=== PATIENT | female | born 1990 | race Caucasian/White ===

== ENCOUNTER 2020-02-15 07:08 | Emergency (ER) | payer MEDICAID, SELFPAY ==
[2020-02-15 07:19] VITALS: BP 127/65; PULSE 92; RESP 18; TEMP 36.9; O2SAT 100; BMI 33.8
[2020-02-15 07:52] LABS: Glucose Urine UA NEG (NEG); Leukocyte Esterase Urine NEG (NEG); Nitrite Urine NEG (NEG); Specific Gravity - Urine 1.015 (1.005-1.025); Urine Blood TRACE (NEG); Urine Ketones NEG (NEG); Urine Protein NEG (NEG-TRACE)
[2020-02-15 07:56] LABS: Appearance Urine CLEAR; Color Urine YELLOW
[2020-02-15 08:00] LABS: RBC Urine 0-2 /HPF (0); Squamous Epithelial Cell Urine 1+ /LPF; WBC Urine 0 /HPF (0-4)
--- NOTE | 2020-02-15 08:04 | CT_ITS ---
EXAMINATION: CT ABDOMEN AND PELVIS WITH CONTRAST CLINICAL INFORMATION: Lower abdominal, right flank, RLQ pain rule out appendicitis, div. COMPARISON: None TECHNIQUE: Multidetector volumetric images were obtained from the superior aspect of the liver through the pubic symphysis following administration 85 mL of Omnipaque 350 intravenous contrast. Sagittal and coronal reformatted images were obtained on the technologist's workstation. Oral contrast: No This CT examination was performed using dose optimization techniques as appropriate, variously including the following: Automated exposure control. Adjustment of mA and/or kV according to patient size (this includes techniques or standardized protocols for targeted exams where dose is matched to indication/reason for exam; i.e. extremities or head). Use of iterative reconstruction technique. DLP: 815 mGy-cm FINDINGS: LUNG BASES: The visualized lung bases are unremarkable. LIVER, GALLBLADDER, AND BILIARY TREE: The liver is normal in size, shape, and attenuation. No focal hepatic lesion or biliary ductal dilatation is present. The gallbladder is unremarkable with no evidence of radiopaque gallstones, gallbladder wall thickening, or obvious pericholecystic inflammatory changes. PANCREAS: Unremarkable. SPLEEN: Unremarkable. ADRENAL GLANDS: Unremarkable. KIDNEYS AND URETERS: The kidneys are normal in size, shape, and attenuation. No hydronephrosis, hydroureter, or calculi seen. No perinephric stranding. BLADDER: Unremarkable. GASTROINTESTINAL TRACT: The small and large bowel are unremarkable. The appendix is unremarkable. ABDOMINAL WALL: No significant hernia is appreciated. LYMPH NODES: No retroperitoneal lymphadenopathy. VASCULAR: Unremarkable. PELVIC VISCERA: An anteverted uterus is present containing an IUD in good position. Bilateral ovarian cysts are seen. OSSEOUS STRUCTURES: Mild degenerative changes present in the lumbosacral spine. CT/CT abdomen pelvis w con IMPRESSION: An etiology for the patient's lower abdominal/right flank and right lower quadrant pain has not been found. No nephrolithiasis is seen and the appendix appears normal.
--- NOTE | 2020-02-15 08:09 | ED.ABDPAIN ---
HPI - Abdominal Pain General Chief Complaint: Abdominal Pain Stated Complaint: abdominal pain Time Seen by Provider: 02/15/20 07:53 Source: patient Mode of arrival: ambulatory Limitations: no limitations History of Present Illness HPI narrative: 29-year-old female who presents to the emergency department for evaluation of abdominal pain. Patient states that she has had a lower abdominal pain for approximately 8 days. She describes the pain is a intermittent cramping/stabbing sensation. She states she has had similar pain on and off in the past and has not been evaluated for it. She thought the pain would just resolve but it persisted. She states that this morning at 5:00 a.m. after she urinated the pain became severe and was greater than 10/10. The pain was more of a sharp stabbing pain located in her right flank, right lower quadrant and suprapubic area. Since the onset of the pain it is improved without treatment 8/10. She states she does have urinary urgency and frequency but no dysuria. She denied fever, chills, nausea, vomiting, and diarrhea. She denied chest pain or shortness of breath. She states that she has had a kidney stone in the past but this pain feels different than her kidney stone pain. She also states she had an ovarian cyst in the past and this feels different than her ovarian cyst pain. The patient is a and she has an IUD for 3 years and gets spotting only with unknown last menstrual period. Related Data Previous Rx's Medication Instructions Recorded ondansetron 4 mg PO Q8H PRN #14 tab 02/15/20 Allergies Allergy/AdvReac Type Severity Reaction Status Date / Time No Known Allergies Allergy Unverified 11/07/19 17:35 Review of Systems Review of Systems Yes all other systems are reviewed and are negative Constitutional: Reports as per HPI Eyes: Reports as per HPI Reports as per HPI Cardiovascular: Reports as per HPI Respiratory: Reports as per HPI Gastrointestinal: Reports as per HPI Genitourinary: Reports as per HPI Musculoskeletal: Reports as per HPI Skin/Breast: Reports as per HPI Reports as per HPI and Reports Abnormal speech present Psychiatric: Reports as per HPI Allergic/Immunologic: Reports as per HPI Physical Exam Vital Signs: Vital Signs: Last Vital Signs Temp 98.5 F 02/15/20 07:19 Pulse 92 02/15/20 07:19 Resp 18 02/15/20 07:19 BP 127/65 02/15/20 07:19 Pulse Ox 100 02/15/20 07:19 Body Mass Index 33.8 Const: General: cooperative and healthy appearing Nutritional Appearance: obese Orientation/consciousness: oriented to person and oriented to place Limitations: no limitations HENMT: Head: Yes normal to inspection, Yes normocephalic and Yes atraumatic Ears: external ears normal General nose exam: Normal external nose present Face and sinus: Yes normal facial exam Mouth: Normal oral and palatal mucosa present Throat: Yes posterior oropharynx normal Eyes: General: appearance normal, both eyes and all related structures Alignment and Position: alignment normal Periorbital: periorbital findings normal Eyelids: Yes eyelids normal Conjunctivae: conjunctivae normal Sclerae: sclerae normal Pupils: Equal, round and reactive pupils present Direct Ophthalmoscopy: normal light reflex Neck: Neck: Yes normal visual inspection and Yes supple Thyroid: Thyroid normal Chest: Chest palpation & inspection: normal inspection of the chest and normal palpation of entire chest wall Resp: Effort & Inspection: normal respiratory effort and able to speak in complete sentences Auscultation: clear to auscultation bilaterally, no crackles, no rales and no rhonchi Cardio: Rate: regular rate Rhythm: regular rhythm Heart sounds: S1 normal heart sound present, S2 normal heart sound present and no murmurs GI: Inspection: Yes normal to inspection Palpation (GI): Soft to palpation, Tenderness to palpation present (GI) in the LLQ (Mild), in the RLQ (Moderate) and suprapubicly (Severe) and no guarding Auscultation: normal bowel sounds : General: Yes CVA tenderness (Moderate right-sided CVAT) Back/Spine/Pelvis: Back: CVA tenderness (Moderate right-sided CVAT) Cervical Spine: normal cervical lordosis Thoracic/Lumbar Spine: thoracic and lumbar spine normal to inspection Skin: General skin exam: no rashes or lesions noted Lesions: no lesions Rashes: no rashes Trauma: no lacerations or abrasions Neuro: General: oriented to person and oriented to place Cranial nerves: Yes CN's II-XII intact bilaterally and Yes Equal, round and reactive pupils present Cognition (Neuro): normal cognition Speech: Abnormal speech present Motor exam (neuro): 5/5 motor strength present throughout Extrem: Right upper extremity: normal to inspection and full ROM Psych: Appearance: grossly normal and well kempt Mental Status: mental status grossly normal Speech and movement: Normal speech and movement present Affect: normal affect Attitude: cooperative Thought process: Normal thought process present Thought content: Normal thought content present Insight: Good insight present (Psych) Judgement: Good judgement present (Psych) Course Course Course Narrative: 29-year-old female with intermittent abdominal pain times 8 days with severe lower abdominal pain since 5:00 a.m., physical examination did reveal moderate right lower quadrant, severe suprapubic and mild left lower quadrant tenderness. She also had moderate right CVA tenderness. The differential does include but is not limited to kidney stone, ectopic , ovarian cyst, appendicitis, diverticulitis. I did order an abdominal pain workup on this patient to include urinalysis and urine test, CT scan of the abdomen pelvis with IV contrast. She was ordered to get Toradol 30 mg IV, Zofran 4 mg IV normal saline IV x1 L. 1038: The patient's pain did improve with the IV Toradol. She continued to have nausea and required a 2nd dose of Zofran 4 mg IV with improvement of her symptoms. She states that her pain is significantly better. Her laboratory evaluation was unremarkable except for an elevated lipase of 217. CT scan of the patient's abdomen pelvis did not reveal any acute abnormalities, the pancreas appeared normal waiting to the radiologist. It is possible the patient may have mild pancreatitis as the cause for pain and I did discuss this with her. The patient does not have evidence for kidney stone or urinalysis. The patient will be discharged home with printed instructions and pancreatitis. She was advised to take Tylenol and ibuprofen for pain. She was also given prescription for Zofran for nausea. She was advised to return emergency department if her symptoms get worse or feels any symptoms of concerning to her. MDM - Abdominal Pain Lab Data Result diagrams: 02/15/20 08:28 02/15/20 08:28 Labs: Lab Results 02/15/20 02/15/20 02/15/20 Range/Units 07:45 08:28 08:28 WBC 8.2 (4.8-10.8) X10*3/uL RBC 4.91 (4.20-5.50) X10*6/uL Hgb 13.2 (12.0-16.0) g/dl Hct 42.6 (37-47) % MCV 86.8 (80-98) fL MCH 26.9 L (27.0-33.0) pg MCHC 31.0 (31.0-35.0) g/dl RDW 13.6 (11.0-16.0) % Plt Count 222 (160-400) X10*3/uL MPV 10.4 (9.4-12.3) fL Immature Gran % (Auto) 0.2 (0.0-0.4) % Neut % (Auto) 74.5 H (45-73) % Lymph % (Auto) 16.3 L (20-40) % [place] % (Auto) 6.5 (2-11) % Eos % (Auto) 1.8 (0-4) % Baso % (Auto) 0.7 (0-2) % Lymph # (Auto) 1.3 (1.2-4.9) X10*3/uL [place] # (Auto) 0.5 (0.1-1.2) X10*3/uL Eos # (Auto) 0.2 (0.0-0.4) X10*3/uL Baso # (Auto) 0.1 (0.0-0.2) X10*3/uL Abs Immat Gran (auto) 0.02 (0.00-0.03) X10*3/uL Absolute Neuts (auto) 6.1 (2.0-8.3) X10*3/uL Absolute Nucleated RBC 0.000 (0.0-0.012) X10*3/uL Nucleated RBC % (auto) 0.0 (0.0-0.2) /100WBC Sodium 139 (135-145) mmol/L Potassium 4.4 (3.3-5.1) mmol/l Chloride 106 (96-108) mmol/L Carbon Dioxide 24 (22-29) mmol/L Anion Gap 13 (12-20) BUN 15 (9-16) mg/dL Creatinine 0.70 (0.5-1.4) mg/dL Estim Creat Clear Calc 120.2 Estimated GFR > 60 Random Glucose 80 (60-115) mg/dL Calcium 8.7 (8.4-10.2) mg/dL Total Bilirubin 0.8 (0.0-1.0) mg/dL AST 19 (5-31) U/L ALT 15 (0-31) U/L Alkaline Phosphatase 65 (39-117) U/L Total Protein 7.0 (6.5-8.0) g/dL Albumin 4.2 (3.5-5.0) g/dL Lipase 217 H (8-78) U/L Urine Color YELLOW Urine Appearance CLEAR Urine pH 6.0 (5.0-8.0) Ur Specific [place] 1.015 (1.005-1.025) Urine Protein NEG (NEG-TRACE) MG/DL Urine Glucose (UA) NEG (NEG) MG/DL Urine Ketones NEG (NEG) MG/DL Urine Blood TRACE (NEG) Urine Nitrite NEG (NEG) Ur Leukocyte Esterase NEG (NEG) Urine RBC 0-2 (0) /HPF Urine WBC 0 (0-4) /HPF Ur Squamous Epith Cells 1+ /LPF Urine Bacteria NONE /LPF Urine Test NEGATIVE (NEGATIVE) Discharge Plan Discharge Clinical Impression: Nausea Abdominal pain Qualifiers: Abdominal location: lower abdomen, unspecified Qualified Code(s): R10.30 - Lower abdominal pain, unspecified Patient Disposition: Home, Self-Care Instructions: Pancreatitis (ED) Additional Instructions: Your blood work revealed an elevated lipase of 217. Normal is 78. You may have mild pancreatitis because of your abdominal pain today. This often gets better without any treatment. Take ibuprofen 200 mg pills, 3 pills every 6 hours as needed for pain. Take Tylenol 500 mg pills, 2 pills every 6 hours as needed for pain. Take Zofran ODT 4 mg, 1 pill dissolved in mouth every 8 hours as needed for nausea or vomiting. Follow-up with your doctor in 2 days for re-evaluation. Please return to the emergency department if her symptoms get worse or if you develop any symptoms are concerning to you. Prescriptions: New ondansetron 4 mg tablet,disintegrating 4 mg PO Q8H PRN (Reason: nausea and vomiting) Qty: 14 RF: 0 [facility] Past Medical History Attestation statement: The following information was validated with the patient. [facility] Narrative: History of kidney stones, UTI, ovarian cyst, , ovarian cyst surgery 6 years prior, smokes 1/3 pack of cigarettes per day intermittently times 10 years, drinks alcohol occasionally, last drink yesterday, denies drug use. Social History Social History Advance Directives: No Advance Directives Information Provided: No
[2020-02-15 08:34] LABS: Basophils Absolute Auto 0.1 X10*3/uL (0.0-0.2); Basophils Percent Auto 0.7 % (0-2); Eosinophils Absolute Auto 0.2 X10*3/uL (0.0-0.4); Eosinophils Percent Auto 1.8 % (0-4); Hematocrit 42.6 % (37-47); Hemoglobin 13.2 g/dl (12.0-16.0); Imm Gran Abs Auto 0.02 X10*3/uL (0.00-0.03); Imm Gran Pct Auto 0.2 % (0.0-0.4); Lymphocytes Absolute Auto 1.3 X10*3/uL (1.2-4.9); Lymphocytes Percent Auto 16.3 % (20-40); Mean Corpuscular Hemoglobin 26.9 pg (27.0-33.0); Mean Corpuscular Volume 86.8 fL (80-98); Mean Platelet Volume 10.4 fL (9.4-12.3); Monocytes Absolute Auto 0.5 X10*3/uL (0.1-1.2); Monocytes Percent Auto 6.5 % (2-11); Neutrophils Absolute Auto 6.1 X10*3/uL (2.0-8.3); Neutrophils Percent Auto 74.5 % (45-73); Platelet Count 222 X10*3/uL (160-400); Red Blood Count 4.91 X10*6/uL (4.20-5.50); Red Cell Distribution Width 13.6 % (11.0-16.0); White Blood Count 8.2 X10*3/uL (4.8-10.8)
[2020-02-15] MEDS: Ketorolac Tromethamine 15 MG/ML VIAL 30 MG IV (08:35)
[2020-02-15] MEDS: ondansetron HCL 4 MG/2 ML VIAL IVPUSH ×2 (08:35→10:20)
[2020-02-15] MEDS: 0.9 % Sodium Chloride 1,000 ML 999 ML IV (08:35)
[2020-02-15 08:36] LABS: MANUAL DIFF FLAG NO
[2020-02-15 08:58] LABS: Alanine Aminotransferase 15 U/L (0-31); Albumin Level 4.2 g/dL (3.5-5.0); Alkaline Phosphatase 65 U/L (39-117); Anion Gap 13 (12-20); Aspartate Amino Transferase 19 U/L (5-31); Bilirubin Total 0.8 mg/dL (0.0-1.0); Blood Urea Nitrogen 15 mg/dL (9-16); Calcium 8.7 mg/dL (8.4-10.2); Carbon Dioxide 24 mmol/L (22-29); Chloride 106 mmol/L (96-108); Creatinine Clr Calc Pharmacy 120.2; Estimated Glomerular Filt Rate > 60; Glucose Random 80 mg/dL (60-115); Potassium 4.4 mmol/l (3.3-5.1); Sodium 139 mmol/L (135-145)
[2020-02-15 09:22] LABS: UPreg QC Valid YES; Urine Pregnancy NEGATIVE (NEGATIVE)
[2020-02-15 09:28] LABS: Lipase 217 U/L (8-78)
[2020-02-15] MEDS: iohexoL 350 MG/ML 100 ML INFUS..BTL 85 ML IV (09:48)
== END 2020-02-15 10:50 | disposition home or self-care (01) ==
PROVIDERS: Emergency Provider Emergency Medicine Emergency Medical Services
DX: R11.0 Nausea (principal); R10.30 Lower abdominal pain, unspecified
CPT/HCPCS: 36415; 74177; 80053; 81001; 81025; 83690; 85025; 96361; 96374; 96375; 96376; 99284; J1885; J2405; Q9967

== ENCOUNTER → 2020-04-28 11:50 | Outpatient (BNVA) | payer OTHER, SELFPAY | PROVIDERS: PCP Internal Medicine; Visit Provider Advanced Practice Midwife ==

== ENCOUNTER → 2020-05-05 12:54 | Outpatient (BNVA) | payer OTHER, SELFPAY | PROVIDERS: PCP Internal Medicine; Visit Provider Advanced Practice Midwife | DX: Z30.09 Encounter for other general counseling and advice on contraception (principal); Z30.432 Encounter for removal of intrauterine contraceptive device; G43.109 Migraine with aura, not intractable, without status migrainosus | CPT/HCPCS: 58301 ==

== ENCOUNTER → 2020-05-11 12:27 | Outpatient (BNVA) | payer OTHER, SELFPAY | PROVIDERS: PCP Internal Medicine; Visit Provider Physician Assistant ==

== ENCOUNTER → 2021-04-20 14:15 | Outpatient (BNVA) | payer OTHER, SELFPAY | PROVIDERS: Visit Provider Advanced Practice Midwife | DX: Z30.09 Encounter for other general counseling and advice on contraception (principal); E66.01 Morbid (severe) obesity due to excess calories; Z68.41 Body mass index [BMI] 40.0-44.9, adult | CPT/HCPCS: 81025; 99212 ==

== ENCOUNTER 2021-10-20 11:08 | Emergency (ER) | payer OTHER, SELFPAY ==
[2021-10-20 11:18] VITALS: BP 143/80; PULSE 99; RESP 18; TEMP 36.6; O2SAT 98; BMI 35.5
== END 2021-10-20 15:24 | disposition left against medical advice (07) ==
PROVIDERS: Emergency Provider Emergency Medicine; PCP Internal Medicine
DX: N64.4 Mastodynia (principal)
CPT/HCPCS: 99281

== ENCOUNTER 2021-11-30 13:04 | Emergency (ER) | payer OTHER, SELFPAY ==
--- NOTE | ~2021-11-30 | US_ITS ---
EXAMINATION: US OBSTETRICAL ULTRASOUND CLINICAL INFORMATION: Abdominal pain, beta-hCG 3747, LMP beginning in October. COMPARISON: None. TECHNIQUE: Multiple 2-D grayscale and Doppler ultrasound images of the pelvis were obtained. FINDINGS: There is a single intrauterine gestational sac with no internal contents identified. Mean gestational sac measurement is 0.44 consistent with 5 weeks and 0 days gestation. The cervix is closed without abnormality. MATERNAL ADNEXA: The right maternal ovary measures 3.5 x 2.7 x 2.2 cm. The left maternal ovary measures 2.2 x 2.0 x 1.5 cm. There is no significant maternal adnexal mass. No maternal pelvic ascites. US/US OB pelvic and transvaginal IMPRESSION: 1. Single intrauterine gestation with ultrasound gestational age of 5 weeks, 0 days +/- 4 days.
[2021-11-30 13:15] VITALS: BP 149/87; PULSE 98; RESP 20; TEMP 36.8; O2SAT 99; BMI 42.0
[2021-11-30 19:28] VITALS: BP 136/74; PULSE 115; RESP 14; TEMP 36.8; O2SAT 100
--- NOTE | 2021-11-30 19:34 | PC.NURSE ---
Pt aox3. Breaths are even and unlabored. Abd is soft and tender. Skin is warm pink and dry. Reports lower abd pain, 10/10. Had three positive urine test at home. MD at bedside.
--- NOTE | 2021-11-30 19:39 | ED.ABDPAIN ---
HPI - Abdominal Pain General Chief Complaint: Abdominal Pain Stated Complaint: lower abd vaginal pressure Time Seen by Provider: 11/30/21 19:28 History of Present Illness HPI narrative: Patient is a 31-year-old female presents today with having lower abdominal cramping that is ongoing for about a week. Patient is sexually active. Been 3 times in the past. Took a test last week was positive. Presented today with having increasing lower abdominal cramping. No fever no chills. No coughing or congestion upper respiratory symptoms. No pain on urination. The pain is in the lower abdomen. It is fairly constant. It does not change with movement. No radiation. Patient is from home. Patient is not vaccinated for COVID. No nausea no vomiting. No change in bowel movement. Related Data Previous Rx's Medication Instructions Recorded norethindrone (contraceptive) 0.35 0.35 mg PO DAILY #84 tabs 05/14/21 mg tablet Allergies Allergy/AdvReac Type Severity Reaction Status Date / Time No Known Allergies Allergy Verified 04/20/21 14:23 Review of Systems Review of Systems No fever no chills Positive lower abdominal pain Yes all other systems are reviewed and are negative [facility] Past Medical History Attestation statement: The following information was validated with the patient. Medical History Acid reflux Gastritis Migraine with aura Morbid obesity Surgical History History of removal of ovarian cyst Family History Family History Father No problems noted. Mother In good health Acute Crohn's disease Maternal Grandmother In good health Maternal Grandfather Diabetes Brother In good health Brother In good health Brother In good health Sister In good health Sister In good health Son In good health Social History Social History Household Members: Children and None Alcohol intake: current Alcohol intake frequency: holidays/special occasions only Cigarettes Per Day: 1 Advance Directives: No Advance Directives Information Provided: No Patient : Yes Current occupational status: unemployed Physical Exam ED Vital Signs: Vital Signs - 24 hr 11/30/21 13:15 11/30/21 19:28 Temperature 98.3 F 98.3 F Pulse Rate 98 115 H Respiratory Rate 20 14 Blood Pressure 149/87 H 136/74 Pulse Oximetry 99 100 Oxygen Delivery Method Room Air Room Air BMI result Body Mass Index 42.0 Appearance: Alert. Oriented X3. No acute distress. Eyes: Pupils equal, round and reactive to light. ENT: Pharynx normal. Neck: Normal inspection. Neck supple. No lymph nodes noted. No crepitus CVS: Normal heart rate and rhythm. Pulses normal. Normal S1 and S2 Respiratory: No respiratory distress. Breath sounds normal. No Wheezing. No rales Abdomen: Soft and nontender. No rigidity. No distention. good BS x4 Skin: Skin warm and dry. Normal skin color. Normal skin turgor. Extremities: No lower extremity edema. Neurovascular intact to all extremities. No Lacerations. No Rash Neuro: Oriented X 3. No motor deficit. No sensory deficit. Moving all extermities. No slurred speech MDM - Abdominal Pain MDM Narrative Medical decision making narrative: 31 years old. Patient's ultrasound positive for an IUP. Patient has appointment to follow-up with OBGYN next week. In no distress. Given threatened A/B precautions. In stable condition. Unlikely to have an ectopic given this is a naturally conceived . In stable condition. Patient did not want a pelvic exam at this time. Will follow-up closely with her OBGYN doctor. Medical Records Attestation: I reviewed the patient's medical records. Lab Data Attestation: I reviewed the patient's lab results. Result diagrams: 11/30/21 20:25 11/30/21 20:25 Labs: Lab Results 11/30/21 11/30/21 11/30/21 Range/Units 20:25 20:25 20:25 WBC 11.0 H (4.8-10.8) X10*3/uL RBC 5.06 (4.20-5.50) X10*6/uL Hgb 13.6 (12.0-16.0) g/dl Hct 42.7 (37.0-47.0) % MCV 84.4 (80.0-98.0) fL MCH 26.9 L (27.0-33.0) pg MCHC 31.9 (31.0-35.0) g/dl RDW 14.0 (11.0-16.0) % Plt Count 285 (160-400) X10*3/uL MPV 10.3 (9.4-12.3) fL Immature Gran % (Auto) 0.2 (0.0-0.4) % Neut % (Auto) 69.3 (45-73) % Lymph % (Auto) 22.0 (20-40) % [place] % (Auto) 6.3 (2-11) % Eos % (Auto) 1.6 (0-4) % Baso % (Auto) 0.6 (0-2) % Lymph # (Auto) 2.4 (1.2-4.9) X10*3/uL [place] # (Auto) 0.7 (0.1-1.2) X10*3/uL Eos # (Auto) 0.2 (0.0-0.4) X10*3/uL Baso # (Auto) 0.1 (0.0-0.2) X10*3/uL Abs Immat Gran (auto) 0.02 (0.00-0.03) X10*3/uL Absolute Neuts (auto) 7.6 (2.0-8.3) x10*3/uL Absolute Nucleated RBC 0.000 (0.0-0.012) X10*3/uL Nucleated RBC % (auto) 0.0 (0.0-0.2) /100WBC Sodium 140 (135-145) mmol/L Potassium 3.8 (3.3-5.1) mmol/L Chloride 104 (96-108) mmol/L Carbon Dioxide 25 (22-29) mmol/L Anion Gap 15 (12-20) BUN 12 (9-16) mg/dL Creatinine 0.74 (0.5-1.4) mg/dL Estim Creat Clear Calc 135.6 Estimated GFR > 60 Random Glucose 87 (60-115) mg/dL Calcium 9.8 D (8.4-10.2) mg/dL Total Bilirubin 0.6 (0.0-1.0) mg/dL Direct Bilirubin 0.3 (0.0-0.5) mg/dL AST 16 (5-31) U/L ALT 16 (0-31) U/L Alkaline Phosphatase 67 (39-117) U/L Total Protein 7.4 (6.5-8.0) g/dL Albumin 4.6 (3.5-5.0) g/dL Lipase 27 (8-78) U/L Beta HCG, Quant 3747 mIU/mL Urine Color Yellow Urine Appearance Clear Urine pH 6.0 (5.0-9.0) Ur Specific [place] 1.025 (1.005-1.025) Urine Protein Negative (Neg-Trace) mg/dL Urine Glucose (UA) Negative (Negative) mg/dL Urine Ketones Negative (Negative) mg/dL Urine Blood Negative (Negative) Urine Nitrite Negative (Negative) Ur Leukocyte Esterase Negative (Negative) Urine RBC 0-2 (0-2) /HPF Urine WBC 0-5 (0-5) /HPF Ur Squamous Epith Cells 11-20 (0-2) /HPF Urine Bacteria 1+ (None Seen) Hyaline Casts 0-2 (0-2) /LPF Discharge Plan Discharge Clinical Impression: , , threatened Patient Disposition: Home, Self-Care Instructions: (ED), Threatened Miscarriage (ED) Prescriptions: No Action norethindrone (contraceptive) 0.35 mg tablet 0.35 mg PO DAILY Qty: 84 4RF Referrals: Irving Humphrey MD [Physician] - 12/02/21
[2021-11-30] MEDS: 0.9 % Sodium Chloride 1,000 ML 999 ML IV (20:26)
[2021-11-30 20:33] LABS: MANUAL DIFF FLAG NO
[2021-11-30 20:36] LABS: Basophils Absolute Auto 0.1 X10*3/uL (0.0-0.2); Basophils Percent Auto 0.6 % (0-2); Eosinophils Absolute Auto 0.2 X10*3/uL (0.0-0.4); Eosinophils Percent Auto 1.6 % (0-4); Hematocrit 42.7 % (37.0-47.0); Hemoglobin 13.6 g/dl (12.0-16.0); Imm Gran Abs Auto 0.02 X10*3/uL (0.00-0.03); Imm Gran Pct Auto 0.2 % (0.0-0.4); Lymphocytes Absolute Auto 2.4 X10*3/uL (1.2-4.9); Mean Corpuscular HGB Conc 31.9 g/dl (31.0-35.0); Mean Corpuscular Hemoglobin 26.9 pg (27.0-33.0); Mean Corpuscular Volume 84.4 fL (80.0-98.0); Mean Platelet Volume 10.3 fL (9.4-12.3); Monocytes Absolute Auto 0.7 X10*3/uL (0.1-1.2); Monocytes Percent Auto 6.3 % (2-11); Neutrophils Absolute Auto 7.6 x10*3/uL (2.0-8.3); Neutrophils Percent Auto 69.3 % (45-73); Platelet Count 285 X10*3/uL (160-400); Red Blood Count 5.06 X10*6/uL (4.20-5.50)
[2021-11-30 20:37] LABS: Appearance Urine Clear; Color Urine Yellow; Glucose Urine UA Negative (Negative); Leukocyte Esterase Urine Negative (Negative); Nitrite Urine Negative (Negative); Specific Gravity - Urine 1.025 (1.005-1.025); Urine Blood Negative (Negative); Urine Ketones Negative (Negative); Urine Protein Negative (Neg-Trace)
[2021-11-30 20:39] LABS: Bacteria Urine 1+ (None Seen); Hyaline Casts Urine 0-2 /LPF (0-2); RBC Urine 0-2 /HPF (0-2); WBC Urine 0-5 /HPF (0-5)
[2021-11-30 20:51] LABS: Alanine Aminotransferase 16 U/L (0-31); Albumin Level 4.6 g/dL (3.5-5.0); Alkaline Phosphatase 67 U/L (39-117); Anion Gap 15 (12-20); Aspartate Amino Transferase 16 U/L (5-31); Bilirubin Direct 0.3 mg/dL (0.0-0.5); Bilirubin Total 0.6 mg/dL (0.0-1.0); Blood Urea Nitrogen 12 mg/dL (9-16); Calcium 9.8 mg/dL (8.4-10.2); Carbon Dioxide 25 mmol/L (22-29); Chloride 104 mmol/L (96-108); Creatinine Clr Calc Pharmacy 135.6; Estimated Glomerular Filt Rate > 60; Glucose Random 87 mg/dL (60-115); Lipase 27 U/L (8-78); Potassium 3.8 mmol/L (3.3-5.1); Sodium 140 mmol/L (135-145); Total Protein 7.4 g/dL (6.5-8.0)
[2021-11-30 20:56] LABS: HCG Quantitative 3747 mIU/mL
[2021-11-30 23:13] VITALS: BP 132/75; PULSE 98; RESP 16; O2SAT 100
== END 2021-11-30 23:27 | disposition home or self-care (01) ==
PROVIDERS: Emergency Provider Emergency Medicine Emergency Medical Services; PCP Internal Medicine
DX: O20.0 Threatened abortion (principal); R10.30 Lower abdominal pain, unspecified; Z79.899 Other long term (current) drug therapy
CPT/HCPCS: 36415; 76801; 76817; 80048; 80076; 81001; 83690; 84702; 85025; 99284

== ENCOUNTER 2023-09-21 08:55 | Outpatient (AMB) | payer OTHER, SELFPAY ==
[2023-09-21 08:56] VITALS: BP 130/82; PULSE 82; O2SAT 100; BMI 41.7
--- NOTE | 2023-09-21 08:56 | MHC.PC.OV ---
Vital Signs 09/21/23 08:56 Height 5 ft 4 in Weight 243 lb 0.5 oz BMI 41.7 BP 130/82 Blood Pressure Location Lt radial Position Sitting Pulse 82 Pulse Source Pulse Oximeter Pulse Oximetry (%) 100 Oxygen Delivery Method Room Air Intake Visit Reasons: pe Intake Note: Patient is here today for a physical. 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 After delivery of her last child, patient had episodes of tachycardia. They were periodic, lasted for a few minutes since subsided. She had the symptoms for 1 month after delivery. The child is now 2-year-old. Patient is unable to lose weight. She admits to eating large quantities of food and indulges in junk food. Not exercising. [facility] Medical History (Updated 09/21/23 @ 10:57 by Arnold Mendez MD) Acid reflux Migraine with aura Surgical History History of removal of ovarian cyst Family History Father No problems noted. Mother In good health Acute Crohn's disease Maternal Grandmother In good health Maternal Grandfather Diabetes Brother In good health Brother In good health Brother In good health Sister In good health Sister In good health Son In good health Social History Household Members: Children and None Housing: Apartment Alcohol intake: current Alcohol intake frequency: holidays/special occasions only Patient Tobacco Use Status: Current someday Tobacco user Cigarettes Per Day: 1 e-Cigarette/Vaping Use: Never Used service: No Current occupational status: unemployed Cognitive needs: No Hearing needs: No Vision needs: No Questionnaire PHQ-9 Over the last 2 weeks, how often have you been bothered by any of the following problems? 1. Little interest or pleasure in doing things: not at all 2. Feeling down, depressed, or hopeless: not at all 3. Trouble falling or staying asleep, or sleeping too much: not at all 4. Feeling tired or having little energy: not at all 5. Poor appetite or overeating: not at all 6. Feeling bad about yourself - or that you are a failure or have let yourself or your family down: not at all 7. Trouble concentrating on things, such as reading the newspaper or watching television: not at all 8. Moving or speaking so slowly that other people could have noticed. Or the opposite - being so fidgety or restless that you have been moving around a lot more than usual: not at all 9. Thoughts that you would be better off or of hurting yourself in some way: not at all Total score: 0 Depression Screening Interpretation: Negative Depression Screening Done: Yes 19889 - PHQ-9 Billing: Yes Source: Developed by Drs. David Guidry, Ene Chavarria, Anirudh Parker and colleagues, with an educational matt from [employer] Thrive Questionnaire Date Thrive assessed: 09/21/23 I am a: Patient What is your living situation today?: I have a steady place to live Within the past 12 months, did the food you bought not last and you didn't have the money to get more?: Never true Within the past 12 months, did you worry whether your food would run out before you got money to buy more?: Never true Do you have trouble paying for medicines?: No Do you have trouble getting transportation to medical appointments?: No Do you have trouble paying your heating and electricity bill?: No Do you have trouble taking care of your child, family member or friend?: No Do you have trouble with day-to-day activities such as bathing, preparing meals, shopping, managing finances, etc.?: No Are you currently unemployed and looking for a job?: No Are you interested in more education?: No Please select the resources that you would like help with: None Currently or been in a relationship where the following occur: No concerns reported THRIVE Score: 0 AUDIT C Alcohol Use Questionnaire (AUDIT-C) 1. How often do you have a drink containing alcohol?: Never 2. How many drinks containing alcohol do you have on a typical day when you are drinking?: 1 or 2 (0) 3. How often do you have six or more drinks on one occasion?: Never Total Score: 0 KRYSTIAN-7 AMB Questionnaire KRYSTIAN-7 Date KRYSTIAN - 7 assessed: 09/21/23 Feeling nervous, anxious, or on edge: 0 = Not at all Not being able to stop or control worryin = Not at all Worrying too much about different things: 0 = Not at all Trouble relaxin = Not at all Being so restless that it is hard to sit still: 0 = Not at all Becoming easily annoyed or irritable: 0 = Not at all Feeling afraid as if something awful might happen: 0 = Not at all Total KRYSTIAN-7 score (0-4 normal; 5-9 mild; 10-14 moderate; 15-21 severe): 0 Source: Developed by Drs. David Guidry, Ene Chavarria, Anirudh Parker and colleagues, with an educational matt from [employer]. KRYSTIAN-7 Assessment Billing KRYSTIAN-7 Assessment Tool: KRYSTIAN-7 Assessment 05712 Physical exam (Primary Care) Vital Signs: Last Vital Signs Pulse 82 09/21/23 08:56 BP 130/82 09/21/23 08:56 Pulse Ox 100 09/21/23 08:56 Oxygen Delivery Method Room Air 09/21/23 08:56 BMI result Body Mass Index 41.7 BMI Assessment/Plan discussion: High (1 lb per week weight loss suggested.) BMI High, discussed plan: lifestyle, weight reduction and dietary Tobacco/Smoking Status: Tobacco use Status Tobacco use date assessed 09/21/23 09/21/23 09:03 Patient Tobacco Use Status Current someday Tobacco 09/21/23 09:03 e-Cigarette/Vaping Use Never Used 09/21/23 09:03 Are you ready to quit: Yes Tobacco cessation counseling provided: Yes Relapse Prevention: discussed the importance of a supportive environment CPT code: Less than 3 minutes PHQ-9: PHQ-9 Score PHQ-9: Total score 0 09/21/23 09:06 Depression Screening Interpretation: Negative Thrive Assessment: Date of Thrive Assessment Date Thrive assessed 09/21/23 09/21/23 09:03 Currently or been in a relationship where the following occur: No concerns reported Const General: cooperative and healthy appearing Nutritional Appearance: well nourished Orientation/consciousness: patient oriented x3 Limitations: no limitations HENMT Head: Yes normal to inspection Eyes General: appearance normal, both eyes and all related structures Neck Neck: Yes normal visual inspection Chest Chest palpation & inspection: normal palpation of entire chest wall Resp Effort & Inspection: normal respiratory effort Neuro General: patient oriented x3 Office Procedures EKG Details: Normal sinus rhythm. [id number], Complete Assessment and Plan Assessment & Plan (1) Obesity, morbid, BMI 40.0-49.9: Code(s): E66.01 - Morbid (severe) obesity due to excess calories Plan: 20 minutes spent on counseling. Patient was advised to eat less consciously. Portion control emphasized. An appointment with a consumer insights intern made. (2) Annual physical exam: Code(s): Z00.00 - Encounter for general adult medical examination without abnormal findings Plan: Blood work ordered. Will call with the results. (3) Tachycardia: Code(s): R00.0 - Tachycardia, unspecified Plan: EKG done in the office was normal sinus rhythm. Orders: Orders AMB EKG-In Office Today R00.0 - Tachycardia, unspecified Coding Level of Care Code Est Pt Level 4 (12197) Est Pt Prev Care 18-39y(56478) Diagnoses Obesity, morbid, BMI 40.0-49.9 E66.01 Annual physical exam Z00.00 Tachycardia R00.0 CPT Codes EKG - CPT: 40539-Absqauowecataobrv, Complete ([id number]) Additional Codes KRYSTIAN-7 Assessment Billing - KRYSTIAN-7 Assessment Tool: KRYSTIAN-7 Assessment 30541 ([id number])
== END 2023-09-21 10:26 | disposition home or self-care (01) ==
PROVIDERS: PCP Internal Medicine; Visit Provider Internal Medicine
DX: Z00.00 Encounter for general adult medical examination without abnormal findings (principal); E66.01 Morbid (severe) obesity due to excess calories; Z68.41 Body mass index [BMI] 40.0-44.9, adult; R00.0 Tachycardia, unspecified
CPT/HCPCS: 93000; 99395

== ENCOUNTER → 2023-09-28 12:44 | Outpatient (BNVA) | payer OTHER, SELFPAY | PROVIDERS: Visit Provider Physician Assistant Surgical ==

== ENCOUNTER 2023-10-30 08:00 | Outpatient (AMB) | payer OTHER, SELFPAY ==
--- NOTE | 2023-10-30 09:47 | MHC.OFFVISWM ---
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 BMI 41.5: Details: Start time: 9.40am, End time: 10.11am ?I spent 26 minutes speaking with the patient on the phone plus an additional 5 minutes reviewing and updating records for a total of 31 minutes HPI Comments Details: Previous weight loss efforts: self diets Wakes up: 6.30am, sleeps: 11.30pm Breakfast: 10am x 3/wk (3 eggs, sausages, bread) Lunch:skips, may have a 3pm lunch if there is no breakfast ([place], soups) Dinner: 5-6pm (chicken, beans and rice) Snacks: none Exercise: none Fluids: Coffee: 3 cups/day (creamer and sugar), tea: none now in the past with honey, soda: Regular Coke daily, juice: occasionally orange juice, ETOH: none PFSH Medical History (Updated 10/30/23 @ 09:50 by Bassam Siu MD) Morbid obesity Acid reflux Migraine with aura Surgical History (Updated 09/28/23 @ 13:14 by Celi Quiroz CMA) Hx of colonoscopy History of removal of ovarian cyst Family History Father No problems noted. Mother In good health Acute Crohn's disease Maternal Grandmother In good health Maternal Grandfather Diabetes Brother In good health Brother In good health Brother In good health Sister In good health Sister In good health Son In good health Social History (Updated 09/28/23 @ 13:14 by Celi Quiroz CMA) Household Members: Children and None Housing: Apartment Alcohol intake: current Alcohol intake frequency: holidays/special occasions only Patient Tobacco Use Status: Current someday Tobacco user Cigarettes Per Day: 2 e-Cigarette/Vaping Use: Never Used service: No Current occupational status: unemployed Cognitive needs: No Hearing needs: No Vision needs: No Telehealth Telehealth Telehealth Platform: Telephone Location of provider rendering services: practice address Location of patient: address on file Patient Identification confirmed using: Name, : Yes Telehealth method: voice only Patient verbally consented to treatment: Yes Patient verbally consented to billing insurance company: Yes Patient informed of any privacy concerns related to visit: Yes Minutes spent on Phone/Video with Pt.: 31 Assessment & Plan Assessment & Plan (1) Morbid obesity: Code(s): E66.01 - Morbid (severe) obesity due to excess calories Category: Medical Plan: 1.? Plan for lap sleeve gastrectomy. If diaphragmatic or ventral hernias are present at time of surgery, these will be repaired laparoscopically as well. Risks and complications include possible conversion to an open procedure, anastomotic leak, bleeding requiring transfusion, small bowel obstruction, , DVT and pulmonary embolism, cardiac, or pulmonary complications, as mcfp complications such as anastomotic ulcer, insufficient weight loss and vitamin deficiencies. I emphasized the importance of close follow-up, adherence to instructions and good communication. 2. You will receive a link of our software sylvia to generate an individualized nutritional and exercise plan specific for you. Please send me a screenshot of the plans you will generate Meal to include lean meat (beef, fish, pork, turkey, chicken), or honduran yogurt, or egg whites, or beans with a salad with olive oil and fruits (berries, pears, apples, kiwi). Avoid salt, breads, potatoes, rice, pasta, desserts. ?3. If you choose shakes, each shake would be drunk slowly, like coffee in a period of 2 hours. ?4. If you choose bars, cut each bar in 4 pieces and eat each piece in 30min ?to make each bar last 2 hours. ?5. I emphasized the importance of measuring accurately the food portion and measure it when serving the food in plate ?6. The meal portions include a specific number of forks of meat and salad. You always eat the meat portion but you can replace up to half of salad/vegetables portion with rice, potatoes or pasta, or a fruit ?if you like. The less you do it the better weight loss will be. ?7. One full-size fork is what it can be scooped on the fork without falling aside and not what can be bit with the fork. Use regular forks like those you find in a typical restaurant. ?8.? Please send me weight measurements as soon as possible and then once a week. Always include your diet and exercise plan. 9. The best choice would be to purchase a stationary bike, elliptical or treadmill at home that can track calories. Let me know if you do so I can give you an exercise plan. ?10.?It is important of avoiding and for at least 18 months postoperatively and has been discussed at the infosession. ?11. Goal is to lose at least 1.5-2lbs per week ?12. Goal to lose 10% of your weight before surgery, which is about 24lbs. Ultimate weight goal: 217lbs before surgery 13. Please follow the diet plan exactly without any change. If you don't like something about the plan or you feel hungry you need to communicate with me so I can help you revise the plan. You should not change the plan yourself. 14. To be scheduled for EGD due to history of GERD. The possibility of biopsies was discussed. Patient needs to avoid use of NSAIDs and aspirin for 1 week prior to EGD. Risks of perforation and bleeding was discussed with the patient. This will be an outpatient procedure with IV sedation. Orders: Orders H Pylori Breath Test Today E66.01 - Morbid (severe) obesity due to excess calories, K21.9 - Gastro-esophageal reflux disease without esophagitis Complete Blood Count Auto Diff Today E66.01 - Morbid (severe) obesity due to excess calories, K21.9 - Gastro-esophageal reflux disease without esophagitis Lipid Panel Today E66.01 - Morbid (severe) obesity due to excess calories, K21.9 - Gastro-esophageal reflux disease without esophagitis Comprehensive Met. Panel Today E66.01 - Morbid (severe) obesity due to excess calories, K21.9 - Gastro-esophageal reflux disease without esophagitis Vitamin B12 and Folate Today E66.01 - Morbid (severe) obesity due to excess calories, K21.9 - Gastro-esophageal reflux disease without esophagitis Zinc Today E66.01 - Morbid (severe) obesity due to excess calories, K21.9 - Gastro-esophageal reflux disease without esophagitis C Reactive Protein Today E66.01 - Morbid (severe) obesity due to excess calories, K21.9 - Gastro-esophageal reflux disease without esophagitis Vitamin A Today E66.01 - Morbid (severe) obesity due to excess calories, K21.9 - Gastro-esophageal reflux disease without esophagitis Ferritin Today E66.01 - Morbid (severe) obesity due to excess calories, K21.9 - Gastro-esophageal reflux disease without esophagitis Vitamin D 25-OH Total Today E66.01 - Morbid (severe) obesity due to excess calories, K21.9 - Gastro-esophageal reflux disease without esophagitis XR chest 2V Today E66.01 - Morbid (severe) obesity due to excess calories, K21.9 - Gastro-esophageal reflux disease without esophagitis FL upper GI w air Today E66.01 - Morbid (severe) obesity due to excess calories, K21.9 - Gastro-esophageal reflux disease without esophagitis Insulin Today E66.01 - Morbid (severe) obesity due to excess calories, K21.9 - Gastro-esophageal reflux disease without esophagitis Hemoglobin A1c Today E66.01 - Morbid (severe) obesity due to excess calories, K21.9 - Gastro-esophageal reflux disease without esophagitis IRON PROFILE Today E66.01 - Morbid (severe) obesity due to excess calories, K21.9 - Gastro-esophageal reflux disease without esophagitis Vitamin B1 Today E66.01 - Morbid (severe) obesity due to excess calories, K21.9 - Gastro-esophageal reflux disease without esophagitis TSH reflex Free T4 Today E66.01 - Morbid (severe) obesity due to excess calories, K21.9 - Gastro-esophageal reflux disease without esophagitis US abdomen comp w elastography Today E66.01 - Morbid (severe) obesity due to excess calories, K21.9 - Gastro-esophageal reflux disease without esophagitis ECG 12 lead EKG Today E66.01 - Morbid (severe) obesity due to excess calories, K21.9 - Gastro-esophageal reflux disease without esophagitis Referrals Nutrition/Dietitian Referral E66.01 - Morbid (severe) obesity due to excess calories, K21.9 - Gastro-esophageal reflux disease without esophagitis Behavioral Health Referral E66.01 - Morbid (severe) obesity due to excess calories, K21.9 - Gastro-esophageal reflux disease without esophagitis
[2023-10-30 09:57] VITALS: BMI 41.4
== END 2023-10-30 10:12 | disposition home or self-care (01) ==
LOC: HO.HBS 08:00
PROVIDERS: Visit Provider Surgery
DX: E66.01 Morbid (severe) obesity due to excess calories (principal)
CPT/HCPCS: 99203

== ENCOUNTER → 2023-10-30 08:00 | Outpatient (BNVA) | payer OTHER, SELFPAY | PROVIDERS: Visit Provider Surgery ==

== ENCOUNTER → 2023-11-02 10:48 | Outpatient (REF) | payer OTHER, SELFPAY ==
--- NOTE | ~2023-11-02 | XR_ITS ---
EXAMINATION: XR CHEST CLINICAL INFORMATION: Morbid (severe) obesity due to excess calories COMPARISON: None available. TECHNIQUE: 2 views of the chest were obtained. FINDINGS: No significant abnormality is noted involving the heart, lungs, mediastinum, bony thorax or soft tissues. XR/XR chest 2V IMPRESSION: No acute cardiopulmonary disease. Electronically signed by: Sweta Dunne MD 11/23/2023 01:58 PM EDT RP
--- NOTE | 2023-11-02 10:56 | ECG_ITS ---
Test Reason : e66.01 Blood Pressure : / mmHG Vent. Rate : 090 BPM Atrial Rate : 090 BPM P-R Int : 140 ms QRS Dur : 076 ms QT Int : 358 ms P-R-T Axes : 060 037 014 degrees QTc Int : 437 ms Normal sinus rhythm Normal ECG No previous ECGs available Referred By: Bassam Siu Electronically Signed By:JOSETTE SILVA
== END ==
LOC: HO.CARD 10:48
PROVIDERS: Visit Provider Surgery
DX: E66.01 Morbid (severe) obesity due to excess calories (principal); K21.9 Gastro-esophageal reflux disease without esophagitis
CPT/HCPCS: 71046; 93005

== ENCOUNTER 2023-11-03 09:44 | Outpatient (REF) | payer OTHER, SELFPAY ==
[2023-11-03 10:03] LABS: MANUAL DIFF FLAG NO
[2023-11-03 10:54] LABS: Estimated Average Glucose 100 mg/dL; Hemoglobin A1c % 5.1 % (<6.0)
[2023-11-03 11:14] LABS: Urine Pregnancy NEGATIVE (NEGATIVE)
[2023-11-03 11:15] LABS: UPreg QC Valid YES
[2023-11-03 11:17] LABS: Basophils Absolute Auto 0.1 X10*3/uL (0.0-0.2); Basophils Percent Auto 0.8 % (0-2); Eosinophils Absolute Auto 0.2 X10*3/uL (0.0-0.4); Eosinophils Percent Auto 2.5 % (0-4); Hematocrit 40.8 % (37.0-47.0); Imm Gran Abs Auto 0.02 X10*3/uL (0.00-0.03); Imm Gran Pct Auto 0.3 % (0.0-0.4); Lymphocytes Absolute Auto 1.4 X10*3/uL (1.2-4.9); Lymphocytes Percent Auto 18.8 % (20-40); Mean Corpuscular HGB Conc 31.9 g/dl (31.0-35.0); Mean Corpuscular Hemoglobin 26.6 pg (27.0-33.0); Mean Corpuscular Volume 83.6 fL (80.0-98.0); Mean Platelet Volume 11.3 fL (9.4-12.3); Monocytes Absolute Auto 0.5 X10*3/uL (0.1-1.2); Monocytes Percent Auto 6.4 % (2-11); Neutrophils Absolute Auto 5.1 x10*3/uL (2.0-8.3); Neutrophils Percent Auto 71.2 % (45-73); Platelet Count 237 X10*3/uL (160-400); Red Blood Count 4.88 X10*6/uL (4.20-5.50); Red Cell Distribution Width 13.7 % (11.0-16.0); White Blood Count 7.2 X10*3/uL (4.8-10.8)
[2023-11-03 11:20] LABS: Alanine Aminotransferase 11 U/L (0-31); Albumin Level 4.1 g/dL (3.5-5.0); Alkaline Phosphatase 75 U/L (39-117); Anion Gap 11 (12-20); Aspartate Amino Transferase 11 U/L (5-31); Blood Urea Nitrogen 11 mg/dL (9-16); C Reactive Protein 0.82 mg/dL (< or = 0.50); Calcium 9.2 mg/dL (8.4-10.2); Carbon Dioxide 27 mmol/L (22-29); Chloride 105 mmol/L (96-108); Cholesterol 143 mg/dL (<200); Estimated Glomerular Filt Rate > 60; Glucose Random 72 mg/dL (60-115); HDL Cholesterol 49 mg/dL (>40); Iron 128 mcg/dL (30-160); LDL Cholesterol Calculated 75 mg/dL (<100); Percent Iron Saturation 50 % (15-50); Potassium 3.6 mmol/L (3.3-5.1); Sodium 139 mmol/L (135-145); Total Iron Binding Capacity 256 mcg/dL (228-428); Total Protein 6.8 g/dL (6.5-8.0); Triglycerides 97 mg/dL (<150); Unsaturated Iron Binding 128 ug/dL
[2023-11-03 11:38] LABS: Ferritin 89 ng/mL (10-122); Insulin 5 uU/mL (2-29); TSH reflex Free T4 0.89 uIU/mL (0.32-4.0); Vitamin D 25-OH Total 18.5 ng/mL (>30)
[2023-11-03 11:41] LABS: Folate 10.3 ng/mL (> or = 4.0); Vitamin B12 363 pg/mL (200-900)
[2023-11-07 00:34] LABS: Zinc 69 mcg/dL (60-130)
[2023-11-08 18:08] LABS: Vitamin A 47 mcg/dL (38-98)
[2023-11-09 15:24] LABS: Vitamin B1 10 nmol/L (8-30)
== END 2023-11-03 09:45 | disposition home or self-care (01) ==
LOC: HO.LAB 09:44
PROVIDERS: Physician Assistant Surgical; PCP Internal Medicine; Visit Provider Surgery
DX: Z01.818 Encounter for other preprocedural examination (principal); E66.01 Morbid (severe) obesity due to excess calories; K21.9 Gastro-esophageal reflux disease without esophagitis
CPT/HCPCS: 36415; 80053; 80061; 81025; 82306; 82607; 82728; 82746; 83036; 83525; 83540; 84425; 84443; 84590; 84630; 85025; 86140

== ENCOUNTER 2023-11-16 11:25 | Outpatient (AMB) | payer OTHER, SELFPAY ==
--- NOTE | 2023-11-16 12:14 | AM.OFFWIN_ITS ---
Intake Vital Signs 11/16/23 12:16 Height 5 ft 4 in Weight 238 lb BMI 40.8 BP 140/78 H Blood Pressure Location Rt brachial Position Sitting Pulse 74 Pulse Source Pulse Oximeter Pulse Oximetry (%) 98 Oxygen Delivery Method Room Air Intake Visit Reasons: EP swollen right eye in pain Intake Note: Patient here for right swollen eye which she woke up to this morning. she states it mayorga and is very itchy. Patient Tobacco Use Status: Current someday Tobacco user Allergies No Known Allergies Allergy (Verified 11/16/23 12:17) Do you need a note to return to daycare/school/sports/work: Yes HPI EP swollen right eye in pain HPI Details This note is constructed using voice recognition software. While every effort has been made to ensure accuracy, lead embedded software engineer errors may have been included. The patient is a 33 year old female who presents to the clinic today with complaint of stye to her right upper eyelid for the last 3 days. She denies any difficulty with vision, pain with moving her eye, discharge from the eye. She notes that she fell asleep a couple of days ago with makeup on her eye just prior to onset of symptoms. [facility] Medical History (Updated 11/02/23 @ 13:03 by KEVIN Anderson) Morbid obesity Acid reflux Migraine with aura Surgical History (Updated 09/28/23 @ 13:14 by Celi Quiroz CMA) Hx of colonoscopy History of removal of ovarian cyst Family History Father No problems noted. Mother In good health Acute Crohn's disease Maternal Grandmother In good health Maternal Grandfather Diabetes Brother In good health Brother In good health Brother In good health Sister In good health Sister In good health Son In good health Social History (Updated 09/28/23 @ 13:14 by Celi Quiroz CMA) Household Members: Children and None Housing: Apartment Alcohol intake: current Alcohol intake frequency: holidays/special occasions only Patient Tobacco Use Status: Current someday Tobacco user Cigarettes Per Day: 2 e-Cigarette/Vaping Use: Never Used service: No Current occupational status: unemployed Cognitive needs: No Hearing needs: No Vision needs: No Review of Systems Const All systems reviewed & are unremarkable except as noted in HPI and below Physical Exam Vital Signs: Last Vital Signs Pulse 74 11/16/23 12:16 BP 140/78 H 11/16/23 12:16 Pulse Ox 98 11/16/23 12:16 Oxygen Delivery Method Room Air 11/16/23 12:16 BMI result Body Mass Index 40.8 Const General: cooperative, healthy appearing, comfortable, no acute distress and alert Orientation/consciousness: patient oriented x3 Limitations: no limitations Eyes Other: Hordeolum present to right upper eyelid. Visual Martinez: normal visual martinez by confrontation Conjunctivae: conjunctivae normal Sclerae: sclerae normal Corneas: corneas normal Pupils: Equal, round and reactive pupils present EOM: EOMs intact bilaterally Direct Ophthalmoscopy: normal light reflex Skin General skin exam: no rashes or lesions noted, elasticity normal and turgor normal Neuro General: patient oriented x3 Cranial nerves: Yes Equal, round and reactive pupils present Psych Appearance: grossly normal Mental Status: mental status grossly normal Speech and movement: Normal speech and movement present Affect: normal affect Assessment & Plan Assessment & Plan (1) Hordeolum externum of right upper eyelid: Code(s): H00.011 - Hordeolum externum right upper eyelid Plan: Advised warm compresses at minimum 4 times per day. Advised patient to avoid eye makeup until resolution of symptoms. Discussed consideration of prescribing antibacterial ointment for symptomatic management, however this would not be for infection and not necessary for treatment of her symptoms. She declined the ointment prescription. Advised follow up as needed with worsening or failure to resolve. Plan See above for full details and plan. Coding Level of Care Code Est Pt Level 3 (24208) Diagnoses Hordeolum externum of right upper eyelid H00.011
[2023-11-16 12:16] VITALS: BP 140/78; PULSE 74; O2SAT 98; BMI 40.8
== END 2023-11-16 12:44 | disposition home or self-care (01) ==
PROVIDERS: PCP Internal Medicine; Visit Provider Registered Nurse
DX: H00.011 Hordeolum externum right upper eyelid (principal)

== ENCOUNTER → 2023-11-16 11:25 | Outpatient (BNVA) | payer OTHER, SELFPAY | PROVIDERS: PCP Internal Medicine | DX: H00.011 Hordeolum externum right upper eyelid (principal) | CPT/HCPCS: 99212 ==

== ENCOUNTER → 2023-11-24 10:04 | Outpatient (AMB) | payer OTHER, SELFPAY ==
--- NOTE | 2023-11-24 10:14 | MHC.WMTHER ---
Intake Intake Visit Reasons: (OV) BH Intake Allergies No Known Allergies Allergy (Verified 11/16/23 12:17) PFSH Medical History (Updated 11/16/23 @ 17:30 by Bassam Siu MD) Morbid obesity Acid reflux Migraine with aura Surgical History (Updated 09/28/23 @ 13:14 by Celi Quiroz CMA) Hx of colonoscopy History of removal of ovarian cyst Family History Father No problems noted. Mother In good health Acute Crohn's disease Maternal Grandmother In good health Maternal Grandfather Diabetes Brother In good health Brother In good health Brother In good health Sister In good health Sister In good health Son In good health Social History (Updated 09/28/23 @ 13:14 by Celi Quiroz CMA) Household Members: Children and None Housing: Apartment Alcohol intake: current Alcohol intake frequency: holidays/special occasions only Patient Tobacco Use Status: Current someday Tobacco user Cigarettes Per Day: 2 e-Cigarette/Vaping Use: Never Used service: No Current occupational status: unemployed Cognitive needs: No Hearing needs: No Vision needs: No Behavioral Health Assessment Weight Management Therapy Therapy Notes Details PT is a 33 years old Female, who presents for a visit to complete BH assessment as part of surgical weight loss program. Presenting Concerns Referral Source WMP - Provider. PT sees Dr. Dunn Had initial visit on 10/30/23 and was 241Lbs that day. Reason for referral Completion of behavioral health assessment as part of process for weight-loss surgery. Precipitating Event Obesity. Living Situation Current Living Situation Rent At risk of losing current housing? No Satisfied with current living situation? Yes Comments Pt lives with her 4 children. Food/Weight/Diet Expectations of change Initial Goal to lose 10% of your weight before surgery, which is about 24lbs. Ultimate weight goal: 217lbs before surgery. PT reports that most recent weight, from yesterday was 234Lbs. Patient is interested in losing weight, have a lifestyle change and have a better quality of her life. She wants to be a better example for her kids and be alive and healthy for them. PT is implementing the following: Current meal plan: 2 shakes, 2 bars, 1 meal @4-6pm 7F/7F. Exercise: Walking 4-5 times at week, for about 1 hour. History/Relationship with food PT reports her family eats a lot and they are Hispanics and tend to have foods high in fats and carbs. PT reports she grew up close to food and using food as a tool to bring families together. somedays she was eating 3 big meals and other would skip breakfast an lunch and then having a big dinner. She was also used to big portions and eating until feeling very full, to drink soda multiple times at day and having a lot of coffee with sugar and cream. At times she did not have a steady schedule for meals so she would have treats multiple times at day. PT denies ever use food as a reward or to feel better. Denies any history of stress/emotional eating. Example of meals before starting the program: Breakfast: 3-5 scramble eggs, 2 slices of bread, 5 sausages with soda or coffee. Am snack: none Lunch: ham and cheese sandwich with letter/tomatoes and onions. She added ann, ketchup. Was 1 foot long sandwich. Dinner: style. rice, meat, plantains or soup with rice, or pasta. Big portions. Snacks: crackers, cookies, chips. Usually 10-15 min after meals. Drinks/Liquids: 2 Litters at day. 2 big coffee cups with sugar and creamer, equivalent to 4 cups. History/Relationship with weight She was at a normal weight in childhood. She noticed a major gain weight after first . Culturally she was advised to eat for 2 as she was skinny . She gained 80Lbs with first , was unable to lose these Lbs. She was 140Lbs 12 years ago before first 's. In the last 10 years, the patient's Lowest weight was 200Lbs and highest over 247Lbs. History/Relationship with dieting Diets, shakes, change food options. However Pt reports she did it on her own, never had a guidance about real portions and better meal plans. inconsistent with exercise and healthy eating. Binge Eating Do you frequently eat large amounts of food in short periods of time, not feeling physically hungry? Yes Do you feel out of control when you eat a large amount of food in a short period of time? Yes Do you eat large amounts of food rapidly and typically alone? No Night Eating Do you wake up at least once during the night to eat? No If you wake up in the night, do you find that it is necessary to eat something in order to fall back asleep? No Do you have little or no appetite in the morning and feel very hungry in the evening, often overeating between dinner and when you go to bed? Yes Social History Family history and relationship 1 year ago. she has 4 children. Pt has 4 siblings. Parents alive. PT reports she has a good family relationships. 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 Developmental history and status None. Currently WNL. Social support Family. she has an aunt who had bariatric surgery. Community support PCP. Buddhism/Spirituality Hoahaoism. Cultural/Ethnic information . PT was born in [place], [place]. Living in the [place] since she was 10 y/o. PT is bilingual. Legal Involvement and History Current or historical involvement with the legal system? None. Questionnaires PHQ-9 Over the last 2 weeks, how often have you been bothered by any of the following problems? 1. Little interest or pleasure in doing things: not at all 2. Feeling down, depressed, or hopeless: not at all 3. Trouble falling or staying asleep, or sleeping too much: not at all 4. Feeling tired or having little energy: not at all 5. Poor appetite or overeating: not at all 6. Feeling bad about yourself - or that you are a failure or have let yourself or your family down: not at all 7. Trouble concentrating on things, such as reading the newspaper or watching television: not at all 8. Moving or speaking so slowly that other people could have noticed. Or the opposite - being so fidgety or restless that you have been moving around a lot more than usual: not at all 9. Thoughts that you would be better off or of hurting yourself in some way: not at all Total score: 0 Depression Screening Interpretation: Negative (Scores obtained from new PT pack. ) Depression Screening Done: Yes Source: Developed by Drs. David Guidry, Ene Chavarria, Anirudh Parker and colleagues, with an educational matt from [employer]. Binge Eating Scale Group 1 A. I don't feel self-conscious about my wt. or body size when I'm with others. B. I feel concerned about how I look to others, but it normally does not make me fell disappointed with myself C. I do get self-conscious about my appearance and wt. which makes me feel disappointed in myself. D. I feel very self-conscious about my wt. and frequently I feel intense shame and disgust for myself. I try to avoid social contacts because of my self-consciousness. Response Group 1: A Group 2 A. I don't have any difficulty eating slowly in the proper manner. B. Although I seem to gobble down foods, I don't end up feeling stuffed because of eating to much. C. At times, I tend to eat quickly and then, I feel uncomfortably full afterwards. D. I have the habit of bolting down my food, without really chewing it. When this happens I usually feel uncomfortably stuffed because I've eaten to much. Response Group 2: A Group 3 A. I feel capable to control my eating urges when I want to. B. I feel like I have failed to control my eating more than the average person. C. I feel utterly helpless when it comes to feeling in control of my eating urges. D. Because I feel so helpless about controlling my eating I have become very desperate about trying to get control. Response Group 3: A Group 4 A. I don't have the habit of eating when I'm bored. B. I sometimes eat when I'm bored, but often I'm able to get busy and get my mind off food. C. I have a regular habit of eating when I'm bored, but occasionally, I can use some other activity to get my mind off eating. D. I have a strong habit of eating when I'm bored. Nothing seems to help me breath the habit. Response Group 4: A Group 5 A. I'm usually physically hungry when I eat something. B. Occasionally, I eat something on impulse even though I really am not hungry. C. I have the regular habit of eating foods, that I might not really enjoy, to satisfy a hungry feeling even though physically, I don't need the food. D. Although I'm not physically hungry, I get a hungry feeling in my mouth that only seems to be satisfied when I eat a food, like sandwich, that fills my mouth. Sometimes, when I eat the food to satisfy my mouth hunger, I then spit the food out so I won't gain weight. Response Group 5: A Group 6 A. I don't feel any guilt or self-hate after I overeat. B. After I overeat, occasionally I feel guilt or self-hate. C. Almost all the time I experience strong guilt or self-hate after I overeat. Response Group 6: A Group 7 A. I don't lose total control of my eating when dieting even after periods when I overeat. B. Sometimes when I eat a forbidden food on a diet, I feel like I blew it and eat even more. C. Frequently, I have the habit of saying to myself, I've blown it now, why not go all the way, when I overeat on a diet. When that happens I eat more. D. I have a regular habit of starting a strict diets for myself but I break the diets by going on an eating binge. My life seems to be either a feast or famine. Response Group 7: A Group 8 A. I rarely eat so much food that I feel uncomfortably stuffed afterwards. B. Usually about once a month, I each such a quantity of food, I end up feeling very stuffed. C. I have regular periods during the month when I eat large amounts of food, either at mealtime or at snacks. D. I eat so much food that I regularly feel quite uncomfortable after eating and sometimes a bit nauseous. Response Group 8: A Group 9 A. My level of calorie intake does not go up very high or go down very low on a regular basis. B. Sometimes after I overeat, I will try to reduce my caloric intake to almost nothing to compensate for the excess calories I've eaten. C. I have a regular habit of overeating during the night. It seems that my routine is not to be hungry in the morning but overeat in the evening. D. In my adult years, I have had week-long periods where I practically starve myself. This follows periods when I overeat. It seems I live a life of either feast or famine. Response Group 9: B Group 11 A. I don't have any problem stopping eating when I feel full. B. I usually can stop eating when I feel full but occasionally overeat leaving me feeling uncomfortably stuffed. C. I have a problem stopping eating once I start and usually I feel uncomfortably stuffed after I eat a meal. D. Because I have a problem not being able to stop eating when I want, I sometimes have to induce vomiting to relieve my stuffed feeling. Response Group 11: A Group 12 A. I seem to eat just as much when I'm with others, Family social gatherings as when I'm by myself. B. Sometimes, when I'm with other persons, I don't eat as much as I want to eat because I'm self-conscious about my eating. C. Frequently, I eat only a small amount of food when others are present, because I'm very embarrassed about my eating. D. I feel so ashamed about overeating that I pick times to overeat when I know no one will see me. I feel like a closet eater. Response Group 12: A Group 13 A. I eat three meals a day with only an occasional between meal snack. B. I eat 3 meals a day, but I also normally snack between meals. C. When I am snacking heavily, I get in the habit of skipping regular meals. D. There are regular periods when I seem to be continually eating, with no planned meals. Response Group 13: A Group 14 A. I don't think much about trying to control unwanted eating urges. B. At least some of the time, I feel my thoughts are pre-occupied with trying to control my eating urges. C. I feel that frequently I spend much time thinking about how much I ate or about trying not to eat anymore. D. It seems to me that most of my waking hours are pre-occupied by thoughts about eating or not eating. I feel like I'm constantly struggling not to eat. Response Group 14: A Group 15 A. I don't think about food a great deal. B. I have strong craving for food but they last only for brief periods of time. C. I have days when I can't seem to think about anything else but food. D. Most of my days seem to be pre-occupied with thoughts about food. I feel like I live to eat. Response Group 15: B Group 16 A. I usually know whether or not I'm physically hungry. I take the right portion of food to satisfy me. B. Occasionally, I feel uncertain about knowing whether or not I'm physically hungry. A these times it's hard to know how much food I should take to satisfy me. C. Even though I might know how many calories I should eat, I don't have any idea what is a normal amount of food for me. Response Group 16: A Binge Eating Score: 2 Score less than 17 Minimal Risk Score between 18-26 Moderate Risk Score between 27-46 High Risk Assessment & Plan Assessment & Plan (1) Morbid obesity: Code(s): E66.01 - Morbid (severe) obesity due to excess calories (2) Eating disorder, unspecified: Code(s): F50.9 - Eating disorder, unspecified Plan Pt not cleared today. We will meet again to complete assessment, PHQ-9 will be administered again at next visit and BES reviewed. Next sylvia: 12/13/23 at 1:45pm, telehealth. Coding Level of Care Code New Pt Psy Diag Darnell ([id number]) Patient Type New Diagnoses Morbid obesity E66.01 Eating disorder, unspecified F50.9 Time Spent (min) 50 Comment Start time: 10:10am, end time: 11:00am
== END ==
PROVIDERS: Visit Provider Counselor Mental Health
DX: F50.9 Eating disorder, unspecified (principal); E66.01 Morbid (severe) obesity due to excess calories
CPT/HCPCS: 90791

== ENCOUNTER → 2023-11-24 10:04 | Outpatient (BNVA) | payer OTHER, SELFPAY | PROVIDERS: Visit Provider Counselor Mental Health ==

== ENCOUNTER 2024-09-26 09:01 | Outpatient (AMB) | payer OTHER, SELFPAY ==
--- NOTE | 2024-09-26 09:09 | A.OFFPC_ITS ---
Vital Signs 09/26/24 09:11 Height 5 ft 4 in Weight 238 lb 2 oz BMI 40.9 BP 110/66 Blood Pressure Location Lt brachial Position Sitting Pulse 63 Pulse Source Pulse Oximeter Temp 96.9 F Temp Source Temporal Artery Scan Pulse Oximetry (%) 100 Oxygen Delivery Method Room Air Intake Visit Reasons: annual exam Intake Note: Patient is here today for a physical. Pharmacy Technician Inpatient Required: No Mysql Developer: Not Required per policy Accompanied by: Self / Same As Patient Allergies No Known Allergies Allergy (Verified 09/26/24 09:11) Tobacco use date assessed: 09/26/24 Dental Screening Dental Screen Date: 09/26/24 Did you have a dental visit in the last 12 months?: Yes Did you have a dental problem in the last 6 months where you did not have access to dental care?: No Was dental information given to patient?: Patient has dentist HPI annual exam HPI Details 33 yr old female presents to the office requesting an annual exam [facility] Medical History Morbid obesity Acid reflux Migraine with aura Surgical History Hx of colonoscopy History of removal of ovarian cyst Family History Father No problems noted. Mother In good health Acute Crohn's disease Maternal Grandmother In good health Maternal Grandfather Diabetes Brother In good health Brother In good health Brother In good health Sister In good health Sister In good health Son In good health Social History Household Members: Children and None Housing: Apartment Alcohol intake: current Alcohol intake frequency: holidays/special occasions only Patient Tobacco Use Status: Current someday Tobacco user Tobacco use type: Cigarette Cigarettes Per Day: 2 (per week) e-Cigarette/Vaping Use: Never Used Second Hand Smoke Exposure: Yes service: No Current occupational status: unemployed Cognitive needs: No Hearing needs: No Vision needs: No Questionnaire PHQ-9 Over the last 2 weeks, how often have you been bothered by any of the following problems? 1. Little interest or pleasure in doing things: not at all 2. Feeling down, depressed, or hopeless: not at all 3. Trouble falling or staying asleep, or sleeping too much: not at all 4. Feeling tired or having little energy: not at all 5. Poor appetite or overeating: not at all 6. Feeling bad about yourself - or that you are a failure or have let yourself or your family down: not at all 7. Trouble concentrating on things, such as reading the newspaper or watching te levision: not at all 8. Moving or speaking so slowly that other people could have noticed. Or the opposite - being so fidgety or restless that you have been moving around a lot more than usual: not at all 9. Thoughts that you would be better off or of hurting yourself in some way: not at all Total score: 0 Depression Screening Interpretation: Negative Depression Screening Done: Yes Source: Developed by Drs. David Guidry, Ene Chavarria, Anirudh Parker and colleagues, with an educational matt from [employer]. Thrive Questionnaire Date Thrive assessed: 09/26/24 I am a: Patient What is your living situation today?: I have a steady place to live Within the past 12 months, did the food you bought not last and you didn't have the money to get more?: Never true Within the past 12 months, did you worry whether your food would run out before you got money to buy more?: Never true Do you have trouble paying for medicines?: No Do you have trouble getting transportation to medical appointments?: No Do you have trouble paying your heating and electricity bill?: No Do you have trouble taking care of your child, family member or friend?: No Do you have trouble with day-to-day activities such as bathing, preparing meals, shopping, managing finances, etc.?: No Are you currently unemployed and looking for a job?: I choose not to answer this question Are you interested in more education?: No Please select the resources that you would like help with: None Currently or been in a relationship where the following occur: No concerns reported THRIVE Score: 0 AUDIT C Alcohol Use Questionnaire (AUDIT-C) 1. How often do you have a drink containing alcohol?: Never Total Score: 0 KRYSTIAN-7 AMB Questionnaire KRYSTIAN-7 Date KRYSTIAN - 7 assessed: 09/26/24 Feeling nervous, anxious, or on edge: 0 = Not at all Not being able to stop or control worryin = Not at all Worrying too much about different things: 0 = Not at all Trouble relaxin = Not at all Being so restless that it is hard to sit still: 0 = Not at all Becoming easily annoyed or irritable: 0 = Not at all Feeling afraid as if something awful might happen: 0 = Not at all Total KRYSTIAN-7 score (0-4 normal; 5-9 mild; 10-14 moderate; 15-21 severe): 0 Source: Developed by Drs. David Guidry, Ene Chavarria, Anirudh Parker and colleagues, with an educational matt from [employer]. Physical exam (Primary Care) Vital Signs: Last Vital Signs Temp 96.9 F 09/26/24 09:11 Pulse 63 09/26/24 09:11 BP 110/66 09/26/24 09:11 Pulse Ox 100 09/26/24 09:11 Oxygen Delivery Method Room Air 09/26/24 09:11 BMI result Body Mass Index 40.9 Tobacco/Smoking Status: Tobacco use Status Tobacco use date assessed 09/26/24 09/26/24 09:19 Patient Tobacco Use Status Current someday Tobacco 09/26/24 09:19 Tobacco use type Cigarette 09/26/24 09:19 e-Cigarette/Vaping Use Never Used 09/26/24 09:19 PHQ-9: PHQ-9 Score PHQ-9: Total score 0 09/26/24 09:19 Depression Screening Interpretation: Negative Thrive Assessment: Date of Thrive Assessment Date Thrive assessed 09/26/24 09/26/24 09:19 Currently or been in a relationship where the following occur: No concerns reported Coding Level of Care Code Est Pt Prev Care [id number]([id number]) Diagnoses Encounter for sterilization Z30.2 Morbid obesity E66.01 Assessment & Plan Assessment & Plan (1) Encounter for sterilization: Code(s): Z30.2 - Encounter for sterilization Plan: Hourly Associate consult for tubectomy sent. (2) Morbid obesity: Code(s): E66.01 - Morbid (severe) obesity due to excess calories Category: Medical Plan: Patient is considering surgical options to lose weight. Plan History of Present Illness - The patient is a 33-year-old female presenting with a physical examination. - Reports a pinching sensation in the heart during a blood donation, leading to cessation of the donation process. - Experiences intermittent lower back pain, particularly in the mornings, which can result in difficulty walking. - Describes the pain as excruciating, lasting throughout the day, and improving as the day progresses. - Has a history of using an intrauterine device (IUD) and is considering a tubal ligation for permanent contraception. - Reports a non-painful lump present for five years, with no associated symptoms. Social History - Family status: The patient has four children. Review of Systems - Cardiovascular: Reports pinching sensation in the heart during blood donation. - Musculoskeletal: Reports intermittent lower back pain with difficulty walking, particularly in the mornings. - Reproductive: Reports presence of a non-painful lump for five years. Physical Exam General: Cooperative and healthy appearing Nutritional Appearance: Well nourished Orientation/consciousness: Patient oriented x3 Limitations: No limitations Head: Normal to inspection General: Appearance normal, both eyes and all related structures Neck: Normal visual inspection Chest: Normal palpation of entire chest wall Respiratory: Normal respiratory effort Neurology: Patient oriented x3 Left breast: Erythematous papule Results Plan 1. Pinching Sensation In The Heart During Blood Donation - Conduct blood work to investigate the cause of the pinching sensation. 2. Intermittent Lower Back Pain - Referral to physical therapy for assessment and management of lower back pain. 3. Request For Tubal Ligation - Referral to gynecology for consultation regarding tubal ligation. 4. Presence Of A Non-Painful Lump - No lump present, erythematous small papule. Reassurance Discussion Notes I discussed with the patient the need for blood work to investigate the pinching sensation experienced during blood donation. I also recommended a referral to physical therapy for her lower back pain and a consultation with gynecology for tubal ligation. Additionally, I advised further examination of the non-painful lump present for five years. Patient Instructions - Follow up with blood work as discussed to investigate heart sensation. - Attend physical therapy sessions for lower back pain management. - Schedule a consultation with gynecology for tubal ligation. - Monitor the lump and report any changes or concerns. Orders: Orders Liver Panel Today E66.01 - Morbid (severe) obesity due to excess calories Thyroid Stimulating Hormone Today E66.01 - Morbid (severe) obesity due to excess calories Lipid Panel Today E66.01 - Morbid (severe) obesity due to excess calories UA and rflx microscopic Today E66.01 - Morbid (severe) obesity due to excess calories Basic Metabolic Panel Today E66.01 - Morbid (severe) obesity due to excess calories Complete Blood Count no Diff Today E66.01 - Morbid (severe) obesity due to excess calories Referrals [employer] SUPERVISOR Referral Z30.2 - Encounter for sterilization
[2024-09-26 09:11] VITALS: BP 110/66; PULSE 63; TEMP 36.1; O2SAT 100; BMI 40.9
--- OUTSIDE RECORDS SUMMARY | 2024-09-26 09:23 | XMS_ITS | Clinical Summary ---
Author Organization [employer] Address [address] [place] [address] Care Team Providers Care Molder Punch Name Role Phone Unavailable Primary Care Provider Unavailabl e Allergies No known active allergies Medications No known medications Active Problems Problem Noted Date Diagnosed Date Dental caries into pulp 04/16/2024 Social History Tobacco Use Types Packs/Day Years Used Date Smoking Tobacco: Never Smokeless Tobacco: Never Tobacco Cessation:Counseling Given: Not Answered Alcohol Use Standard Drinks/Week Comments Defer 0 (1 standard drink = 0.6 oz pur e alcohol) Comments Unknown Sex and Gender Information Value Date Recorded Sex Assigned at Female 12/20/2021 10:16 AM EDT Legal Sex Female 10:16 AM EDT Gender Identity Female 05/31/2023 11:05 AM EDT Sexual Orientation Straight 05/31/2023 11 :05 AM EDT Last Filed Vital Signs Vital Sign Reading Time Taken Comments Blood Pressure 126/74 04/16/2024 10:28 AM EST Pulse - - Temperature - - Respiratory Rate - - Oxygen Saturation - - Inhaled Oxygen Concentration - - Weight - - Height - - Body Mass Index - - Plan of Treatment Upcoming Encounters Date Type Department Care Team ([facility] st Contact Info) Description 10/14/2024 1:30 PM EDT Office Visit [facility] [address] [place] [address] Lancaster-Washburn, Chelsey, DDS [address] [place] [address] Health Maintenance Due Date Last Done Comments Dental Oral Exam 1991 Dental Prophylaxis 1991 Dental X-Ray: Bitewings 1991 Dental X-Ray: Full Mouth 1991 Depression Screening 1991 HIV Screening 1991 SDOH Screening 1991 Disability Screening 1991 Alcohol/Substance Use Screening 2003 Family Planning (PISQ) 09/28/2006 Hepatitis C Screening 09/28/2009 Pap Smear 09/28/2012 Cervical Cancer Screening 09/28/2021 HPV/Cotest 09/28/2021 COVID-19 Vaccine (1 - 2023- season) 2023 Influenza Vaccine (#1) 2024 12/26/2011 Tobacco Screening 04/16/2025 04/16/2024 DTaP/Tdap/Td Vaccines (8 - Td or Tdap) 05/17/2032 05/17/2022, 02/01/2008, 11/04/2003, Additional history exists Zoster Vaccines (1 of 2) 09/28/2041 RSV Patients and Patients Aged 60 years or older (1 - 1-dose 75+ series) 09/28/2066 HIB Vaccines Completed 05/08/1993, 05/21, 04/02/1992, Additional history exists IPV Vaccines Completed 11/10/1995, 04/20, 06/05/1992, Additional history exists Hepatitis B Vaccines Completed 01/11/1996, 11/10/1995, 08/11/1995 Meningococcal Vaccine Completed 02/01/2008 HPV Vaccines Completed 08/26/2008, 02/21, 02/01/2008 Hepatitis A Vaccines Aged Out No long er eligible based on patient's age to complete this topic Meningococcal B Vaccine Aged Out No l onger eligible based on patient's age to complete this topic Pneumococcal Vaccine: Pediatrics (0 to 5 Years) and At-Risk Patients (6 to 49) Years Aged Out No longer eligible based on patient's age to complete this topic RSV under 20 months Aged Out No longe r eligible based on patient's age to complete this topic Rotavirus Vaccines Aged Out No longer eligible based on [place] [address] [facility] [address] [place] [address] , [place] [address]
--- OUTSIDE RECORDS SUMMARY | 2024-09-26 09:23 | XMS_ITS | Clinical Summary ---
Author Organization [employer] [facility] ity Address [address] [place] [address] Care Team Providers Care Certified Wellness Program Coordinator Name Role Phone Khadijah Riddle MD Primary Care Provider [phone] Surgical History Surgery Date Site/Laterality Comments OVARIAN CYST REMOVAL 2013 Right PROCEDURE: HI OVARIAN CYSTECTOMY UNI/BI Medical History Medical History Date Comments Morbid obesity (CMS/HCC V24, CMS/HCC V28) DX:Morbid obesity (HCC) Migraine with aura DX:Migraine w ith aura Gastritis DX:Gastritis Alpha thalassemia silent carrier 2021 DX:Alpha thalassemia silent carrier Family History Medical History Relation Name Comments No Known Problems Daughter No Known Problems Father No Known Problems Half-Brother 1 Obesity Half-Brother 2 No Known Problems Half-Brother 3 Other: overweight Half-Sister 1 No Known Problems Half-Sister 2 Depression Maternal Grandfather Diabetes Maternal Grandfather Hypertension Maternal Grandfather Hypertension Maternal Grandmother Obesity Maternal Grandmother Other: benign tumor removal from chest Maternal Grandmother Ovarian cancer Maternal Grandmother mid-5 0's (Not 100% sure if ovarian or uterine) Thyroid disease Maternal Grandmother Crohn's disease Mother Evelia also espopha monica issue (being evaluated) Breast cancer Mother's side Maternal Grea t Aunt Dx late 30's (removed one breast) No Known Problems Paternal Grandfather Obesity Paternal Grandmother ADD / ADHD Son 1 Asthma Son 1 Other: speech delay Son 1 Asthma Son 2 Cervical cancer Neg Hx Colon cancer Neg Hx Pancreatic cancer Neg Hx Prostate cancer Neg Hx Uterine cancer Neg Hx Relation Name Status Comments Daughter Alive Father Alive Half-Brother 1 Alive share dad Half-Brother 2 Alive share mom Half-Brother 3 Alive share mom Half-Sister 1 Alive share mom Half-Sister 2 Alive share dad Maternal Grandfather Alive Maternal Grandmother Alive Mother Evelia Alive Mother's side Alive Paternal Grandfather Paternal Grandmother Alive Son 1 Alive Son 2 Alive Social History Tobacco Use Types Packs/Day Years Used Date Smoking Tobacco: Former Smokeless Tobacco: Never Alcohol Use Standard Drinks/Week Comments Not Currently 0 (1 standard drink = 0.6 oz pur e alcohol) Comments Unknown Sex and Gender Information Value Date Recorded Sex Assigned at Not on file Legal Sex Female 5:43 PM EST Gender Identity Not on file Sexual Orientation Not on file Obstetrics History Last Filed Vital Signs Vital Sign Reading Time Taken Comments Blood Pressure 119/91 09/07/2022 1:06 PM EDT Pulse 71 09/07/2022 1:06 PM EDT Temperature - - Respiratory Rate - - Oxygen Saturation - - Inhaled Oxygen Concentration - - Weight 117 kg (257 lb) 09/07/2022 1:06 PM EDT Height 165.7 cm (5' 5.25 ) 03/02/2022 1:11 PM ES T Body Mass Index 42.44 03/02/2022 1:11 PM EST Plan of Treatment Health Maintenance Due Date Last Done Comments Hepatitis B Vaccines (1 of 3 - 19+ 3-dose series) 09/28/2010 Cholesterol Screening (Lipid Panel) 01/22/2022 HIV Screening 01/22/2022 Hepatitis C Screening 01/22/2022 Social Influencers of Health Screening 01/22/2022 COVID-19 Vaccine ( - 2023-2 5 season) 2023 Depression Screening 02/21/2024 Influenza Vaccine (#1) 2024 Cervical Cancer Screening: P ap Smear 01/25/2025 01/25/2022 DTaP,Tdap,and Td Vaccines (2 - Td or Tdap) 05/17/2032 05/17/2022 HIB Vaccines Aged Out No longer eligi ble based on patient's age to complete this topic HPV Vaccines Aged Out No longer eligi ble based on patient's age to complete this topic Hepatitis A Vaccines Aged Out No long er eligible based on patient's age to complete this topic IPV Vaccines Aged Out No longer eligi ble based on patient's age to complete this topic MMR Vaccines Aged Out No longer eligi ble based on patient's age to complete this topic Meningococcal ACWY Vaccine Aged Out N o longer eligible based on patient's age to complete this topic Meningococcal B Vaccine Aged Out No l onger eligible based on patient's age to complete this topic Pneumococcal Vaccine: Pediat rics (0 to 5 Years) and At-Risk Patients (6 to 49 Years) Aged Out No longer eligi ble based on patient's age to complete this topic RSV Immunization Patients Un howard 20 months Aged Out No longer eligible b ased on patient's age to complete this topic Varicella Vaccines Aged Out No longer eligible based on patient's age to complete this topic Procedures Procedure Name Priority Date/Time Associated Diagnosis Comments PAP SMEAR Routine 01/25/2022 from Last 3 Months or Most Recently Relevant to Health Maintenance Results * Pap smear (01/25/2022) 01/25/2022 Narrative HISTORICAL TESTING LAB RESULTING AGENCY - 01/31/2022 4:30 PM EST [id number] THINPREP PAP, IMAGED: NEGATIVE FOR SQUAMOUS INTRAEPITHELIAL LESION AND MALIGNANCY . FUNGAL ORGANISMS MORPHOLOGICALLY CONSISTENT WITH MACARIO SPP. SHIFT IN MATT, SUGGESTIVE OF BACTERIAL VAGINOSIS. KAREN MEREDITH , YENIFER(ASCP) (CASE ELECTRONICALLY SIGNED 01 31 2022) RESULT OF APTIMA HIGH RISK HPV ASSAY: HIGH RISK HPV: NEGATIVE (SEROTYPES 16,18,31,33,35,39,45,51,52,56,58,59,66,68) COMPLETED ON 2022-01-28 ADEQUACY: SATISFACTORY ENDOCERVICAL/TRANSFORMATION ZONE COMPONENT PRESENT. SOURCE: THINPREP PAP HPV ANY DX: REFLEX 16 AND 18, CERVICAL, IMAGED CLINICAL INFORMATION: HPV ANY DIAGNOSIS. , PAP HX NEGATIVE, LMP 10/28/21, [Z12.4] Jessica Gross DO LAB CYTOLOGY ORDERABLES Final Result HISTORICAL TESTING LAB RESULTING AGENCY from Last 3 Months or Most Recently Relevant to Health Maintenance Care Teams Certified Wellness Program Coordinator Relationship Specialty Start Date End Date Khadijah Riddle MD [address] , [address] [facility] D/B/A: [facility]on[facility] EVER Hernandez PCP - General Internal Medicine 11/30/21
== END 2024-09-26 09:43 | disposition home or self-care (01) ==
LOC: HO.HMCH 09:01
PROVIDERS: PCP Internal Medicine; Visit Provider Internal Medicine
DX: Z00.00 Encounter for general adult medical examination without abnormal findings (principal); Z30.2 Encounter for sterilization; E66.01 Morbid (severe) obesity due to excess calories; Z68.41 Body mass index [BMI] 40.0-44.9, adult

== ENCOUNTER → 2024-09-26 09:01 | Outpatient (BNVA) | payer OTHER, SELFPAY | PROVIDERS: PCP Internal Medicine; Visit Provider Internal Medicine | DX: Z00.00 Encounter for general adult medical examination without abnormal findings (principal); E66.01 Morbid (severe) obesity due to excess calories; M54.50 Low back pain, unspecified; Z68.41 Body mass index [BMI] 40.0-44.9, adult | CPT/HCPCS: 99395 ==